=== PATIENT | male | born 1990 | race Caucasian/White ===

== ENCOUNTER 2021-02-07 20:26 | Emergency (ER) | payer MEDICAID ==
[~2021-02-07] VITALS: Ht 175.3 cm; Wt 95.0 kg
[2021-02-07 23:03] VITALS: BP 126/75
== END 2021-02-07 23:38 | disposition home or self-care (01) ==
LOC: ER 20:26
DX: T16.1XXA Foreign body in right ear, initial encounter (principal); X58.XXXA Exposure to other specified factors, initial encounter; Y93.89 Activity, other specified; Y92.89 Other specified places as the place of occurrence of the external cause; Y99.8 Other external cause status
CPT/HCPCS: 69200; 99284

== ENCOUNTER 2021-02-10 09:20 | Emergency (ER) | payer MEDICAID ==
[~2021-02-10] VITALS: Ht 157.5 cm; Wt 78.0 kg
[2021-02-10 11:20] VITALS: BP 123/89
== END 2021-02-10 11:18 | disposition home or self-care (01) ==
LOC: ER 09:20
DX: R35.0 Frequency of micturition (principal); N48.89 Other specified disorders of penis
CPT/HCPCS: 82962; 99281